=== PATIENT | female | born 1995 | race American Indian/Alaskan Native ===

== ENCOUNTER 2019-03-12 14:46 | Emergency (ER) | payer MEDICAID ==
--- NOTE | 2019-03-12 15:02 | Event Note ---
ED Screening Note ED Screening Note: pt states her "nerves are bad' states heart feels like it is beating fast states she hit her head yesterday against the pool, states that she had LOC states she had two episodes of emesis today no daily meds PMHx PCOS, asthma LNMP: states she has irregular cycles +smoker non drinker no drug use This initial assessment/diagnostic orders/clinical plan/treatment(s) is/are subject to change based on patients health status, clinical progression and re- assessment by fellow clinical providers in the ED. Further treatment and workup at subsequent clinical providers discretion. Patient/guardian urged not to elope from the ED as their condition may be serious if not clinically assessed and managed. Initial orders include: UA, urine preg, CT
--- NOTE | 2019-03-12 16:05 | Cat Scan Report ---
PROCEDURE: CT HEAD/BRAIN WO CON TECHNIQUE: Computerized tomography of the head was performed without contrast material. CT DOSE LENGTH PRODUCT: 1610.8 mGycm HISTORY: states hit head against pool, states had LOC COMPARISONS: None . FINDINGS: There is no evidence of an acute intracranial process, intracranial hemorrhage or mass effect. The ventricles are normal size. The visualized portions of the orbits, paranasal and mastoid sinuses are unremarkable. There is no evidence of fracture. IMPRESSION: 1. No evidence of an acute intracranial process, intracranial hemorrhage or mass effect. 2. No evidence of fracture.. This document is electronically signed by Vanessa Fry MD., March 12 2019 04:03:14 PM ET
[2019-03-12] MEDS ORDERED: REGLAN PO ONE (18:03)
[2019-03-12] MEDS ORDERED: TYLENOL PO ONE (18:03)
[2019-03-12] MEDS ORDERED: DELTASONE PO ONE ×2 (18:03→18:35)
[2019-03-12] MEDS ORDERED: BENADRYL PO ONE (18:04)
[2019-03-12] MEDS ORDERED: DELTASONE ONE (18:35)
--- NOTE | 2019-03-12 20:12 | Emergency Department Report ---
ED General Adult HPI - General Chief complaint: Anxiety Stated complaint: HEART BEAT FAST/NECK/HEAD PAIN Time Seen by Provider: 03/12/19 15:00 Source: patient Mode of arrival: Ambulatory Limitations: No Limitations - History of Present Illness Initial comments: pt is s 23 y/o aaf with hxc of anxiety, presents for 2 day episode of anxiety states her "nerves are bad' states heart feels like it is beating fast , states she hit her head yesterday against the pool, states that she had LOC states she had two episodes of emesis today takes no daily meds, other hx includes PCOS & asthma, LNMP: states she has irregular cycles +smoker, non drinker , no drug use , symptoms are exacerbated by "worrying" denies HI or SI no specific concern, has positive support system mother, sister, child, pool incident not witnessed pt states she struck head no poot wall, extricates self from pool and was immediately ambulatory on scene, did not seek tx yesterday as symptoms were "not that bad" there is no bruising no bleeding no swelling no dizziness no lightheadedness no n/v no fever or chills pt is tolerating po intake. pt is ambulatory with steady gait at this. Onset/Timin -: days(s) Location: head Radiation: neck Severity scale (0 -10): 8 Quality: aching Consistency: intermittent Improves with: rest Worsens with: movement - Related Data Previous Rx's Medication Instructions Recorded Last Taken Type medroxyPROGESTERone ACETATE 10 mg PO QDAY #10 tablet 07/25/13 Unknown Rx [Provera] traMADol [Ultram] 50 mg PO Q4HR PRN #12 tablet 07/25/13 Unknown Rx Naproxen [Naprosyn TAB] 500 mg PO BID #20 tablet 09/12/14 Unknown Rx Sulfamethoxazole/Trimethoprim 1 each PO BID #14 tablet 09/12/14 Unknown Rx [Bactrim Ds] Acetaminophen [Acetaminophen TAB] 1,000 mg PO Q6HR PRN #30 tablet 03/12/19 Unknown Rx Metoclopramide [Reglan] 10 mg PO Q6H PRN #30 tablet 03/12/19 Unknown Rx diphenhydrAMINE [Benadryl CAP] 25 mg PO Q6HR PRN #30 capsule 03/12/19 Unknown Rx Allergies Allergy/AdvReac Type Severity Reaction Status Date / Time No Known Allergies Allergy Verified 03/12/19 15:03 ED Review of Systems ROS: Stated complaint: HEART BEAT FAST/NECK/HEAD PAIN Other details as noted in HPI Constitutional: denies: chills, fever, weakness Eyes: denies: eye pain, eye discharge, vision change ENT: denies: ear pain, throat pain, dental pain, hearing loss, epistaxis, congestion Respiratory: denies: cough, shortness of breath, wheezing Cardiovascular: denies: chest pain, palpitations Endocrine: no symptoms reported Gastrointestinal: denies: abdominal pain, nausea, vomiting, diarrhea, constipation Genitourinary: denies: urgency, dysuria, frequency, hematuria, discharge Musculoskeletal: other (neck pain ). denies: back pain, joint swelling, arthralgia Skin: denies: rash, lesions Neurological: headache. denies: weakness, numbness, paresthesias, confusion, abnormal gait, vertigo Psychiatric: anxiety. denies: depression, auditory hallucinations, visual hallucinations, homicidal thoughts, suicidal thoughts Hematological/Lymphatic: denies: easy bleeding, easy bruising ED Past Medical Hx - Past Medical History Previous Medical History?: Yes Hx Hypertension: Yes Hx Congestive Heart Failure: No Hx Diabetes: No Hx Deep Vein Thrombosis: No Hx Renal Disease: No Hx Sickle Cell Disease: No Hx Seizures: No Hx Asthma: Yes Hx COPD: No Hx HIV: No Additional medical history: Iron def. anemia - Surgical History Past Surgical History?: Yes Additional Surgical History: laser removal of stye - Social History Smoking Status: Never Smoker Substance Use Type: None - Medications Home Medications: Home Medications Medication Instructions Recorded Confirmed Last Taken Type medroxyPROGESTERone ACETATE 10 mg PO QDAY #10 tablet 07/25/13 Unknown Rx [Provera] traMADol [Ultram] 50 mg PO Q4HR PRN #12 tablet 07/25/13 Unknown Rx Naproxen [Naprosyn TAB] 500 mg PO BID #20 tablet 09/12/14 Unknown Rx Sulfamethoxazole/Trimethoprim 1 each PO BID #14 tablet 09/12/14 Unknown Rx [Bactrim Ds] Acetaminophen [Acetaminophen TAB] 1,000 mg PO Q6HR PRN #30 tablet 03/12/19 Unknown Rx Metoclopramide [Reglan] 10 mg PO Q6H PRN #30 tablet 03/12/19 Unknown Rx diphenhydrAMINE [Benadryl CAP] 25 mg PO Q6HR PRN #30 capsule 03/12/19 Unknown Rx ED Physical Exam - General Limitations: No Limitations General appearance: alert, in no apparent distress - Head Head exam: Present: normocephalic, normal inspection - Expanded Head Exam Expanded Head exam: Absent: laceration, abrasion, contusion, hematoma, racoon eyes, weaver's sign, general tenderness, tenderness of temporal artery, CSF rhinorrhea, CSF otorrhea - Eye Eye exam: Present: normal appearance, PERRL, EOMI. Absent: conjunctival injection, periorbital swelling, periorbital tenderness Pupils: Present: normal accommodation - ENT ENT exam: Present: normal orophraynx, mucous membranes moist, TM's normal bilaterally, normal external ear exam - Expanded ENT Exam Expanded Ear exam: Present: normal external inspection Mouth exam: Present: normal external inspection Throat exam: Positive: normal inspection, other (no blood no swelling airway is patent ) - Neck Neck exam: Present: normal inspection, tenderness (bilat lateral neck muscl pain to palpation rom intact unrestricted to all lopez no posterior vertebral point tenderness ), full ROM. Absent: meningismus, lymphadenopathy, thyromegaly - Respiratory Respiratory exam: Present: normal lung sounds bilaterally. Absent: respiratory distress, wheezes, rales, rhonchi, chest wall tenderness - Cardiovascular Cardiovascular Exam: Present: regular rate, normal rhythm, normal heart sounds. Absent: systolic murmur, diastolic murmur, rubs, gallop - GI/Abdominal GI/Abdominal exam: Present: soft, normal bowel sounds. Absent: distended, tenderness, bruit, hernia - Rectal Rectal exam: Present: deferred - Extremities Exam Extremities exam: Present: normal inspection, full ROM, normal capillary refill. Absent: tenderness, pedal edema, joint swelling, calf tenderness - Back Exam Back exam: Present: normal inspection, full ROM. Absent: tenderness, CVA tenderness (R), CVA tenderness (L), muscle spasm, paraspinal tenderness, vertebral tenderness, rash noted - Expanded Back Exam Expanded Back exam: Absent: saddle anesthesia Back exam: Negative Straight Leg Raising: Left, Right - Neurological Exam Neurological exam: Present: alert, oriented X3, CN II-XII intact, normal gait, reflexes normal. Absent: motor sensory deficit - Expanded Neurological Exam Expanded Patient oriented to: Present: person, place, time Speech: Present: fluid speech Cranial nerves: EOM's Intact: Normal, Gag Reflex: Normal, Tongue Deviation: Normal, Nystagmus: Normal, Facial Sensation: Normal Cerebellar function: Finger to Nose: Normal, Heel to Atkins: Normal, Romberg: Normal Upper motor neuron: Alvarez Neglect: Normal, Pronator Drift: Normal, Babinski Sign: Normal, Sensory Extinction: Normal Sensory exam: Upper Extremity Light Touch: Normal, Upper Extremity Pin Prick: Normal, Upper Extremity Temperature: Normal, UE 2 Point Discrimination: Normal, Lower Extremity Light Touch: Normal, Lower Extremity Pin Prick: Normal, Lower Extremity Temperature: Normal, LE 2 Point Discrimination: Normal Motor strength exam: RUE: 5, LUE: 5, RLE: 5, LLE: 5 DTR: bicep (R): 2+, bicep (L): 2+, ankle (R): 2+, ankle (L): 2+ Best Eye Response ([place]): (4) open spontaneously Best Motor Response ([place]): (6) obeys commands Best Verbal Response ([place]): (5) oriented [place] Total: 15 - Psychiatric Psychiatric exam: Present: normal affect, normal mood - Skin Skin exam: Present: warm, dry, intact, normal color. Absent: rash ED Course Vital Signs 03/12/19 15:03 Temperature 98.6 F Pulse Rate 84 Respiratory 16 Rate Blood Pressure 150/94 [Left] O2 Sat by Pulse 96 Oximetry ED Medical Decision Making - Radiology Data Radiology results: report reviewed, image reviewed Ordering Physician: JASON BILLINGS Date of Service: 03/12/19 Procedure(s): CT head/brain wo con Accession Number(s): [id number] cc: JASON BILLINGS PROCEDURE: CT HEAD/BRAIN WO CON TECHNIQUE: Computerized tomography of the head was performed without contrast material. CT DOSE LENGTH PRODUCT: 1610.8 mGycm HISTORY: states hit head against pool, states had LOC COMPARISONS: None . FINDINGS: There is no evidence of an acute intracranial process, intracranial hemorrhage or mass effect. The ventricles are normal size. The visualized portions of the orbits, paranasal and mastoid sinuses are unremarkable. There is no evidence of fracture. IMPRESSION: 1. No evidence of an acute intracranial process, intracranial hemorrhage or mass effect. 2. No evidence of fracture.. This document is electronically signed by Vanessa Fry MD., March 12 2019 04:03:14 PM ET Transcribed By: ED Dictated By: VANESSA FRY MD Electronically Authenticated By: VANESSA FRY MD Signed Date/Time: 03/12/19 1605 DD/ 155 TD/TT: 03/12/19 1553 - Medical Decision Making ct head normal no fracture no bleed, xray cspine and cxr normal, head is resolved, neuro exam is normal , ekg: nsr no st elevated ID, interp by ed attending, there is no abrasion no contusion no laceration no head deformity swelling crepitius or stepoff, plan: dc to home follow up with pcp in 2-3 days follow up psychiatrist as scheduled next week return to ed if symptoms worsen. Critical care attestation.: If time is entered above; I have spent that time in minutes in the direct care of this critically ill patient, excluding procedure time. ED Disposition Clinical Impression: Headache Qualifiers: Headache type: unspecified Headache chronicity pattern: acute headache Intractability: not intractable Qualified Code(s): R51 - Headache Fall Qualifiers: Encounter type: initial encounter Qualified Code(s): W19.XXXA - Unspecified fall, initial encounter Disposition: DC-01 TO HOME OR SELFCARE Is pt being admited?: No Does the pt Need Aspirin: No Condition: Stable Instructions: Acute Headache (ED), Minor Head Injury (ED) Prescriptions: Acetaminophen [Acetaminophen TAB] 1,000 mg PO Q6HR PRN #30 tablet PRN Reason: Headache diphenhydrAMINE [Benadryl CAP] 25 mg PO Q6HR PRN #30 capsule PRN Reason: Headache Metoclopramide [Reglan] 10 mg PO Q6H PRN #30 tablet PRN Reason: Headache Referrals: LADONNA KIMBLE MD [Primary Care Provider] - 3-5 Days [facility] [Outside] - 3-5 Days Forms: Work/School Release Form(ED) Time of Disposition: 20:37
--- NOTE | 2019-03-12 20:13 | XRay Report ---
PROCEDURE: XR SPINE CERVICAL 2-3V TECHNIQUE: 3 views obtained of the cervical spine HISTORY: neck s/p fall COMPARISONS: No priors FINDINGS: No radiographic evidence of acute cervical spine fracture or malalignment. There is no prevertebral soft tissue swelling. The open-mouth view of the odontoid is within normal limits. IMPRESSION: No radiographic evidence of acute cervical spine fracture or malalignment. Evaluation is limited based on the 3 views obtained.. This document is electronically signed by Deshawn Garcia MD., March 12 2019 08:11:59 PM ET
--- NOTE | 2019-03-12 20:35 | XRay Report ---
PROCEDURE: XR CHEST ROUTINE 2V TECHNIQUE: PA and lateral chest radiographs were obtained. HISTORY: palpitations FINDINGS: Frontal and lateral views the chest were acquired. The heart is normal in size. The lungs a ppear clear. The pleura and mediastinum are within normal limits. IMPRESSION: No active disease in the chest This document is electronically signed by Castillo Orozco MD., March 12 2019 08:33:19 PM ET
[2019-03-12 20:44] VITALS: BP 139/61
== END 2019-03-12 20:25 | disposition home or self-care (01) ==
LOC: ED 14:46
DX: R51 Headache (principal); F41.9 Anxiety disorder, unspecified; R11.10 Vomiting, unspecified; I10 Essential (primary) hypertension; J45.909 Unspecified asthma, uncomplicated; W22.8XXA Striking against or struck by other objects, initial encounter; Y93.89 Activity, other specified; Y92.89 Other specified places as the place of occurrence of the external cause; Y99.8 Other external cause status
CPT/HCPCS: 70450; 71046; 72040; 99284; J7512

== ENCOUNTER 2020-10-22 10:01 | Emergency (ER) | payer MEDICAID ==
[2020-10-22 10:08] VITALS: BP 116/86
--- NOTE | 2020-10-22 10:18 | Emergency Department Report ---
ED General Adult HPI - General Chief complaint: Extremity Injury, Upper Stated complaint: ARM SWOLLEN/ANIXEY Time Seen by Provider: 10/22/20 10:09 Source: patient Mode of arrival: Ambulatory Limitations: No Limitations - History of Present Illness Initial comments: Patient is a 25-year-old female presents emergency room complaints of anxiety. She states that she has had anxiety for a couple of years now. She states that she is currently seeing a psychologist. She is requesting medication management of her anxiety. She has not seen her primary care doctor or psychiatrist regarding medication management of anxiety. She states that occasionally she feels her heart racing at night when she feels stress and anxiety. She is currently asymptomatic and has no symptoms. she denies any SI, HI, hallucinations. Patient is also presenting for right forearm pain which made her call out of work today and she needs a work excuse to be able to return. She states that she has had the pain for approximately 2 days. 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 She denies any fall or injury. She denies any numbness or weakness. No allergies to medications. she is currently on her menstrual cycle. - Related Data Previous Rx's Medication Instructions Recorded Last Taken Type medroxyPROGESTERone ACETATE 10 mg PO QDAY #10 tablet 07/25/13 Unknown Rx [Provera] traMADoL [Ultram] 50 mg PO Q4HR PRN #12 tablet 07/25/13 Unknown Rx Naproxen [Naprosyn TAB] 500 mg PO BID #20 tablet 09/12/14 Unknown Rx Sulfamethoxazole/Trimethoprim 1 each PO BID #14 tablet 09/12/14 Unknown Rx [Bactrim Ds] Acetaminophen [Acetaminophen TAB] 1,000 mg PO Q6HR PRN #30 tablet 03/12/19 Unknown Rx Metoclopramide [Reglan] 10 mg PO Q6H PRN #30 tablet 03/12/19 Unknown Rx diphenhydrAMINE [Benadryl CAP] 25 mg PO Q6HR PRN #30 capsule 03/12/19 Unknown Rx Menthol/Camphor [Aledo [place] 1 applicatio TP BID #18 oint...g. 10/22/20 Unknown Rx Ointment] Naproxen [EC-Naprosyn] 375 mg PO BID PRN #14 10/22/20 Unknown Rx Allergies Allergy/AdvReac Type Severity Reaction Status Date / Time No Known Allergies Allergy Verified 03/12/19 15:03 ED Review of Systems ROS: Stated complaint: ARM SWOLLEN/ANIXEY Other details as noted in HPI Comment: All other systems reviewed and negative ED Past Medical Hx - Past Medical History Previous Medical History?: Yes Hx Hypertension: Yes Hx Congestive Heart Failure: No Hx Diabetes: No Hx Deep Vein Thrombosis: No Hx Renal Disease: No Hx Sickle Cell Disease: No Hx Seizures: No Hx Asthma: Yes Hx COPD: No Hx HIV: No Additional medical history: Iron def. anemia, Anxiety - Surgical History Past Surgical History?: Yes Additional Surgical History: laser removal of stye - Social History Smoking Status: Former Smoker Substance Use Type: Marijuana - Medications Home Medications: Home Medications Medication Instructions Recorded Confirmed Last Taken Type medroxyPROGESTERone ACETATE 10 mg PO QDAY #10 tablet 07/25/13 Unknown Rx [Provera] traMADoL [Ultram] 50 mg PO Q4HR PRN #12 tablet 07/25/13 Unknown Rx Naproxen [Naprosyn TAB] 500 mg PO BID #20 tablet 09/12/14 Unknown Rx Sulfamethoxazole/Trimethoprim 1 each PO BID #14 tablet 09/12/14 Unknown Rx [Bactrim Ds] Acetaminophen [Acetaminophen TAB] 1,000 mg PO Q6HR PRN #30 tablet 03/12/19 Unknown Rx Metoclopramide [Reglan] 10 mg PO Q6H PRN #30 tablet 03/12/19 Unknown Rx diphenhydrAMINE [Benadryl CAP] 25 mg PO Q6HR PRN #30 capsule 03/12/19 Unknown Rx Menthol/Camphor [Aledo [place] 1 applicatio TP BID #18 oint...g. 10/22/20 Unknown Rx Ointment] Naproxen [EC-Naprosyn] 375 mg PO BID PRN #14 tablet. 10/22/20 Unknown Rx ED Physical Exam - General Limitations: No Limitations General appearance: alert, in no apparent distress - Head Head exam: Present: atraumatic, normocephalic - Eye Eye exam: Present: normal appearance - ENT ENT exam: Present: mucous membranes moist - Neck Neck exam: Present: normal inspection, full ROM. Absent: tenderness - Respiratory Respiratory exam: Present: normal lung sounds bilaterally. Absent: respiratory distress, wheezes, rales, rhonchi, stridor, chest wall tenderness, accessory muscle use, decreased breath sounds, prolonged expiratory - Cardiovascular Cardiovascular Exam: Present: regular rate, normal rhythm, normal heart sounds. Absent: systolic murmur, diastolic murmur, rubs, gallop - Extremities Exam Extremities exam: Present: other (FROM of the RUE, no bony ttp of the RUE, no deformity, no ecchymosis, no edema, no skin changes, mild ttp to the region of the right brachioradialis, neurovascularly intact) - Neurological Exam Neurological exam: Present: alert, oriented X3 - Psychiatric Psychiatric exam: Present: normal affect, normal mood. Absent: homicidal ideation, suicidal ideation - Skin Skin exam: Present: warm, dry, intact ED Course Vital Signs 10/22/20 10:06 Temperature 98.0 F Pulse Rate 84 Respiratory 20 Rate Blood Pressure 116/86 O2 Sat by Pulse 100 Oximetry ED Medical Decision Making - Medical Decision Making Patient is a 25-year-old female presents emergency room complaints of anxiety. She states that she has had anxiety for a couple of years now. She states that she is currently seeing a psychologist. She is requesting medication management of her anxiety. She has not seen her primary care doctor or psychiatrist regarding medication management of anxiety. She states that occasionally she feels her heart racing at night when she feels stress and anxiety. She is currently asymptomatic and has no symptoms. she denies any SI, HI, hallucinations. Patient is also presenting for right forearm pain which made her call out of work today and she needs a work excuse to be able to return. She states that she has had the pain for approximately 2 days. 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 She denies any fall or injury. She denies any numbness or weakness. No allergies to medications. she is currently on her menstrual cycle. Vitals are normal. Patient does not does not appear to be clinically having an anxiety attack, she appropriately answers questions, she has a normal affect and mood, she is not tearful, she denies SI, HI, hallucinations, she has no signs of acute psychosis, patient will be referred to outpatient psych and given multiple resources and given information to the [place] crisis line and discuss strict return precautions. on exam: FROM of the RUE, no bony ttp of the RUE, no deformity, no ecchymosis, no edema, no skin changes, mild ttp to the region of the right brachioradialis, neurovascularly intact. Examination appears consistent with mild muscle strain. She has had no acute traumatic injury, she has no signs of acute fracture or dislocation. Patient given pres cription for naproxen and Aledo balm ointment. Patient placed in Ruel wrap by nurse and remained neurovascularly intact. Discussed with patient do not wear too tightly and do not wear at night while sleeping. Advised patient Please use medication as prescribed. May use ice for 15 minutes at a time, rest, elevation of the arm. Do not wear Ruel bandage too tightly and do not wear at night while sleeping. Follow-up with the [facility] or primary care doctor regarding your anxiety. Follow-up with a primary care doctor regarding your arm pain. Return to emergency room for new or worsening symptoms. Critical care attestation.: If time is entered above; I have spent that time in minutes in the direct care of this critically ill patient, excluding procedure time. ED Disposition Clinical Impression: Anxiety Arm pain Qualifiers: Laterality: right Qualified Code(s): M79.601 - Pain in right arm Disposition: DC-01 TO HOME OR SELFCARE Is pt being admited?: No Does the pt Need Aspirin: No Condition: Stable Instructions: Muscle Strain, Managing Anxiety, Adult Additional Instructions: Please use medication as prescribed. May use ice for 15 minutes at a time, rest, elevation of the arm. Do not wear Ruel bandage too tightly and do not wear at night while sleeping. Follow-up with the [facility] or primary care doctor regarding your anxiety. Follow-up with a primary care doctor regarding your arm pain. Return to emergency room for new or worsening symptoms. Prescriptions: Naproxen [EC-Naprosyn] 375 mg PO BID PRN #14 tablet.dr BARRERA Reason: pain Menthol/Camphor [Aledo Jefferson Ointment] 1 applicatio TP BID #18 oint...g. Referrals: PRIMARY MD MILI [Primary Care Provider] - 2-3 Days RADAMES GAN MD [Staff Physician] - 2-3 Days [facility] [Provider Group] - 2-3 Days [facility] [Outside] - 2-3 Days Forms: Work/School Release Form(ED) Time of Disposition: 10:16 Print Language: AMHARIC
== END 2020-10-22 10:40 | disposition home or self-care (01) ==
LOC: ED 10:01
DX: F41.9 Anxiety disorder, unspecified (principal); M79.601 Pain in right arm; I10 Essential (primary) hypertension; J45.909 Unspecified asthma, uncomplicated; Z98.890 Other specified postprocedural states; F12.10 Cannabis abuse, uncomplicated; Z87.891 Personal history of nicotine dependence; Z79.899 Other long term (current) drug therapy
CPT/HCPCS: 99282